=== PATIENT | female | born 1955 | race Caucasian/White ===

== ENCOUNTER 2023-01-09 10:49 | Outpatient (CLI) | payer MEDICARE, OTHER, SELFPAY ==
--- NOTE | 2023-01-09 11:00 | CRLHL7_ITS ---
For Patients: As a result of the 21st Century Cures Act, medical imaging exams and procedure reports are released immediately into your electronic medical record. You may view this report before your referring provider. If you have questions, please contact your health care provider. INDICATION: Gastroesophageal reflux disease with esophagitis. TECHNIQUE: 1 millicurie of technetium-99m labeled sulfur colloid has been given as part of a solid meal. Patient was only able to tolerate a small oral intake. FINDINGS: Throughout the exam there is residual activity in the lower esophagus and near the GE junction. This should be correlated with the possibility of a hiatal hernia. Time: 60 minutes: Activity Remainin percent. Time: 90 minutes: Activity Remainin percent. Time: 120 minutes: Activity Remainin percent. Time: 240 minutes: Activity Remainin percent. These values are within normal limits. Delay in gastric emptying is defined as greater than 40 percent remaining in the stomach at 120 minutes. IMPRESSION: Gastric emptying examination is within normal limits. There is 17 percent residual activity in the stomach at 120 minutes. There is persistent activity identified near the GE junction which should be correlated with a hiatal hernia and/or reflux. Dictated by Samuel Cornell MD @ 01/10/2023 12:53:13 PM (Electronically Signed)
== END 2023-01-09 10:50 | disposition home or self-care (01) ==
LOC: NM 10:50
PROVIDERS: PCP Family Medicine; Visit Provider Internal Medicine Gastroenterology
DX: K21.00 Gastro-esophageal reflux disease with esophagitis, without bleeding (principal)
CPT/HCPCS: 78264; A9541

== ENCOUNTER 2024-04-22 10:45 | Outpatient (RCR) | payer MEDICARE, OTHER, SELFPAY | END 2024-07-21 12:40 | disposition home or self-care (01) | PROVIDERS: PCP Family Medicine; Visit Provider Physician Assistant | DX: M62.89 Other specified disorders of muscle (principal); R26.9 Unspecified abnormalities of gait and mobility; R29.6 Repeated falls; H81.11 Benign paroxysmal vertigo, right ear; Z51.89 Encounter for other specified aftercare | CPT/HCPCS: 95992; 97110; 97112; 97116; 97161; 97530 ==

== ENCOUNTER 2025-04-29 08:45 | Outpatient (RCR) | payer MEDICARE, OTHER, SELFPAY | END 2025-04-29 09:29 | disposition home or self-care (01) | PROVIDERS: PCP Family Medicine; Visit Provider Family Medicine | DX: R60.9 Edema, unspecified (principal); I87.2 Venous insufficiency (chronic) (peripheral); I89.0 Lymphedema, not elsewhere classified; Z51.89 Encounter for other specified aftercare | CPT/HCPCS: 97140; 97165; 97530; 97535 ==